=== PATIENT | female | born 1995 | race Two or more races ===

== ENCOUNTER 2018-11-10 01:11 | Emergency (ER) | payer SELFPAY ==
[~2018-11-10] VITALS: Ht 160 cm; Wt 61.7 kg
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
--- NOTE | 2018-11-10 01:43 | NUR ---
Transported to Radiology for Ct Head
[2018-11-10] MEDS ORDERED: IBUPROFEN 600 MG TABLET PO ONE (01:49)
[2018-11-10] MEDS ORDERED: IBUPROFEN 400 MG TABLET ONE (01:50)
--- NOTE | 2018-11-10 01:58 | NUR ---
Back from Radiology
[2018-11-10] MEDS ORDERED: IBUPROFEN 400 MG TABLET PO ONE (02:00)
[2018-11-10] MEDS ORDERED: LORAZEPAM INJ 2 MG/ML VIAL IM ONE (03:30)
[2018-11-10 03:38] VITALS: BP 130/81
--- NOTE | 2018-11-10 03:39 | NUR ---
Patient discharged to home in stable condition. Written and verbal after care instructions , prescription and copy of imaging results and CD given. Patient verbalizes understanding of instruction.Pt ambulatory with a steady gait
== END 2018-11-10 03:40 | disposition home or self-care (01) ==
LOC: ER 01:12
DX: S62.310A Displaced fracture of base of second metacarpal bone, right hand, initial encounter for closed fracture (principal); S09.8XXA Other specified injuries of head, initial encounter; Z88.1 Allergy status to other antibiotic agents; V49.9XXA Car occupant (driver) (passenger) injured in unspecified traffic accident, initial encounter; Y93.89 Activity, other specified; Y92.410 Unspecified street and highway as the place of occurrence of the external cause; Y99.8 Other external cause status
CPT/HCPCS: 70450-TC; 73110